=== PATIENT | female | born 1975 | race Two or more races ===

== ENCOUNTER 2022-06-16 05:45 | Day surgery (SDC) | payer OTHER | END 2022-06-16 09:30 | disposition home or self-care (01) | LOC: AMB-ENDOS 05:45 | PROVIDERS: ATTEND Surgery | DX: R10.13 Epigastric pain (principal); E66.09 Other obesity due to excess calories; Z20.822 Contact with and (suspected) exposure to COVID-19; Z91.041 Radiographic dye allergy status ==